=== PATIENT | female | born 1985 ===

== ENCOUNTER 2025-04-20 19:47 | Inpatient (IN) | payer BC ==
[2025-04-20] MEDS ORDERED: Sodium Chloride 0.9% 10 ML Syringe FLUSH PRN (20:02)
[2025-04-20] MEDS: Ketorolac 30 MG/ML SDV IVPUSH ONE (20:10)
[2025-04-20] MEDS: diphenhydrAMINE 50 MG/ML SDV IVPUSH ONE (20:10)
[2025-04-20] MEDS: methylPREDNISolone Sodium Succinate 40 MG/1 ML SDV IVPUSH ONE (20:10)
[2025-04-20] MEDS: Ondansetron 4 MG/2 ML SDV IVPUSH ONE ×2 (20:10→20:28)
[2025-04-20 20:20] LABS: BASOPHILS ABSOLUTE AUTO 0.0 K/mm3 (0.0-0.2); BASOPHILS PERCENT AUTO 0.2 % (0.0-1.0); EOSINOPHILS ABSOLUTE AUTO 0.4 K/mm3 (0.0-0.4); EOSINOPHILS PERCENT AUTO 3.1 % (0.0-6.0); IMMATURE GRAN ABSOLUTE AUTO 0.10 K/mm3 (0.00-0.05); IMMATURE GRAN PERCENT AUTO 0.8 % (0.0-0.4); LYMPHOCYTES ABSOLUTE AUTO 0.3 K/mm3 (1.0-4.8); LYMPHOCYTES PERCENT AUTO 2.3 % (24.0-44.0); MEAN PLATELET VOLUME 11.0 fl (9.4-12.3); MONOCYTES ABSOLUTE AUTO 1.1 K/mm3 (0.0-0.8); MONOCYTES PERCENT AUTO 8.2 % (0.0-8.0); NEUTROPHILS ABSOLUTE AUTO 11.2 K/mm3 (1.8-7.7); NEUTROPHILS PERCENT AUTO 85.4 % (41.0-71.0); NRBC ABSOLUTE 0.00 (0.00-0.02); NRBC PERCENT 0.0 % (0.0-0.2); PLATELET COUNT,PLT 181 K/mm3 (150-400); RED BLOOD CELL COUNT 4.44 M/mm3 (4.10-5.30); WHITE BLOOD CELL COUNT,WBC 13.07 K/mm3 (3.9-11.3)
[2025-04-20 20:41] LABS: A/G RATIO 1.0 (1-2); ALANINE AMINOTRANSFERASE,ALT 60.0 U/L (14-59); ASPARTATE AMNIOTRANSFERASE,AST 42.0 U/L (15-37); BILIRUBIN TOTAL 0.9 mg/dL (0.2-1.0); BLOOD UREA NITROGEN,BUN 42.0 mg/dL (7-18); CARBON DIOXIDE,CO2 26.0 mEq/L (21-32); CHLORIDE,CL 100.0 mEq/L (98-107); CREATININE 3.8 mg/dL (0.55-1.02); EST CRCL DRUG DOSING (CG) 20.98 mL/min; ESTIMATED GFR 15.0 mL/min (>60); GLUCOSE RANDOM 119.0 mg/dL (70-99); POTASSIUM,K 3.8 mEq/L (3.5-5.1); PROTEIN TOTAL,TP 6.1 g/dl (6.4-8.2); SODIUM,NA 135.0 mEq/L (136-145)
[2025-04-20] MEDS: Magnesium Sulf/Wat 4 GM/50 mL 4 GM in Premix Bag 1 BAG IV ONE (21:06)
[2025-04-20 21:14] LABS: LACTIC ACID 1.7 mmol/L (0.4-2.0)
[2025-04-20 23:35] LABS: APPEARANCE,URINE CLEAR (Clear); GLUCOSE,URINE NEGATIVE (Negative); OCCULT BLOOD,URINE NEGATIVE (Negative)
[2025-04-21 00:27] LABS: WBC CLUMPS,URINE FEW /hpf (NOT SEEN)
[2025-04-21] MEDS: Furosemide 40 MG/4 ML VIAL IVPUSH ONE (00:56)
[2025-04-21] MEDS: Lactated Ringers 1,000 ML IV SCH (00:59)
[2025-04-21 05:44] LABS: A/G RATIO 0.9 (1-2); ALANINE AMINOTRANSFERASE,ALT 60.0 U/L (14-59); ASPARTATE AMNIOTRANSFERASE,AST 37.0 U/L (15-37); BILIRUBIN TOTAL 0.6 mg/dL (0.2-1.0); BLOOD UREA NITROGEN,BUN 38.0 mg/dL (7-18); CARBON DIOXIDE,CO2 23.0 mEq/L (21-32); CHLORIDE,CL 107.0 mEq/L (98-107); CREATININE 2.3 mg/dL (0.55-1.02); EST CRCL DRUG DOSING (CG) 34.66 mL/min; ESTIMATED GFR 27.0 mL/min (>60); GLUCOSE RANDOM 210.0 mg/dL (70-99); POTASSIUM,K 4.2 mEq/L (3.5-5.1); PROTEIN TOTAL,TP 5.8 g/dl (6.4-8.2); SODIUM,NA 140.0 mEq/L (136-145)
[2025-04-21 05:55] LABS: BASOPHILS ABSOLUTE AUTO 0.0 K/mm3 (0.0-0.2); BASOPHILS PERCENT AUTO 0.1 % (0.0-1.0); EOSINOPHILS ABSOLUTE AUTO 0.0 K/mm3 (0.0-0.4); EOSINOPHILS PERCENT AUTO 0.1 % (0.0-6.0); IMMATURE GRAN ABSOLUTE AUTO 0.13 K/mm3 (0.00-0.05); IMMATURE GRAN PERCENT AUTO 1.4 % (0.0-0.4); LYMPHOCYTES ABSOLUTE AUTO 0.5 K/mm3 (1.0-4.8); LYMPHOCYTES PERCENT AUTO 4.9 % (24.0-44.0); MEAN PLATELET VOLUME 11.3 fl (9.4-12.3); MONOCYTES ABSOLUTE AUTO 0.3 K/mm3 (0.0-0.8); MONOCYTES PERCENT AUTO 2.9 % (0.0-8.0); NEUTROPHILS ABSOLUTE AUTO 8.3 K/mm3 (1.8-7.7); NEUTROPHILS PERCENT AUTO 90.6 % (41.0-71.0); NRBC ABSOLUTE 0.00 (0.00-0.02); NRBC PERCENT 0.0 % (0.0-0.2); PLATELET COUNT,PLT 159 K/mm3 (150-400); RED BLOOD CELL COUNT 4.20 M/mm3 (4.10-5.30); WHITE BLOOD CELL COUNT,WBC 9.17 K/mm3 (3.9-11.3)
[2025-04-21 08:32] LABS: PHOSPHORUS 3.2 mg/dL (2.6-4.7)
[2025-04-21] MEDS ORDERED: Ondansetron 4 MG Tab.DIS PO PRN (09:01)
[2025-04-21] MEDS ORDERED: LORazepam 2 MG/ML SDV IVPUSH PRN (09:08)
[2025-04-21] MEDS ORDERED: Mometasone Furoate HFA 100mcg/Puff 13 GM Inhaler INH PRN (09:16)
[2025-04-21] MEDS: Heparin Sodium 5,000 Units/ML Vial SUBCUT SCH (09:44)
[2025-04-21] MEDS ORDERED: Sennosides/Docusate Sodium 50-8.6 MG Tab PO PRN (21:00)
[2025-04-22 04:56] LABS: BASOPHILS ABSOLUTE AUTO 0.0 K/mm3 (0.0-0.2); BASOPHILS PERCENT AUTO 0.1 % (0.0-1.0); EOSINOPHILS ABSOLUTE AUTO 0.2 K/mm3 (0.0-0.4); EOSINOPHILS PERCENT AUTO 3.2 % (0.0-6.0); IMMATURE GRAN ABSOLUTE AUTO 0.04 K/mm3 (0.00-0.05); IMMATURE GRAN PERCENT AUTO 0.6 % (0.0-0.4); LYMPHOCYTES ABSOLUTE AUTO 1.6 K/mm3 (1.0-4.8); LYMPHOCYTES PERCENT AUTO 22.9 % (24.0-44.0); MEAN PLATELET VOLUME 11.3 fl (9.4-12.3); MONOCYTES ABSOLUTE AUTO 0.5 K/mm3 (0.0-0.8); MONOCYTES PERCENT AUTO 6.9 % (0.0-8.0); NEUTROPHILS ABSOLUTE AUTO 4.6 K/mm3 (1.8-7.7); NEUTROPHILS PERCENT AUTO 66.3 % (41.0-71.0); NRBC ABSOLUTE 0.00 (0.00-0.02); NRBC PERCENT 0.0 % (0.0-0.2); PLATELET COUNT,PLT 131 K/mm3 (150-400); RED BLOOD CELL COUNT 3.73 M/mm3 (4.10-5.30); WHITE BLOOD CELL COUNT,WBC 6.98 K/mm3 (3.9-11.3)
[2025-04-22 05:17] LABS: A/G RATIO 1.0 (1-2); ALANINE AMINOTRANSFERASE,ALT 50.0 U/L (14-59); ASPARTATE AMNIOTRANSFERASE,AST 29.0 U/L (15-37); BILIRUBIN TOTAL 0.3 mg/dL (0.2-1.0); BLOOD UREA NITROGEN,BUN 19.0 mg/dL (7-18); CARBON DIOXIDE,CO2 28.0 mEq/L (21-32); CHLORIDE,CL 113.0 mEq/L (98-107); CREATININE 1.0 mg/dL (0.55-1.02); EST CRCL DRUG DOSING (CG) 79.72 mL/min; ESTIMATED GFR 74.0 mL/min (>60); GLUCOSE RANDOM 114.0 mg/dL (70-99); PHOSPHORUS 2.6 mg/dL (2.6-4.7); POTASSIUM,K 3.8 mEq/L (3.5-5.1); PROTEIN TOTAL,TP 5.1 g/dl (6.4-8.2); SODIUM,NA 144.0 mEq/L (136-145)
[2025-04-22] MEDS: Ketorolac 15 MG/ML SDV IVPUSH ONE (06:16)
[2025-04-22] MEDS: DESVENLAFAXINE SUCCINATE 50 MG PO PRN (09:58)
[2025-04-22] MEDS: Potassium Phosphates 30 MMOLE in Sodium Chloride 0.9% 500 ML IV SCH (10:03)
[2025-04-22 12:52] LABS: BORDETELLA PARAPERT IS1001 Not Detected (Not Detected)
[2025-04-22 16:16] VITALS: BP 137/90; PULSE 66
== END 2025-04-22 16:05 | disposition home or self-care (01) | DRG 82 ==
LOC: JD.ED 19:47 → JD.MS 04-21 06:11
PROVIDERS: ADMIT Student in an Organized Health Care Education/Training Program; ATTEND Student in an Organized Health Care Education/Training Program
DX: H53.8 Other visual disturbances (principal); I95.2 Hypotension due to drugs; M79.10 Myalgia, unspecified site; R11.2 Nausea with vomiting, unspecified; N17.9 Acute kidney failure, unspecified; N30.00 Acute cystitis without hematuria; G43.909 Migraine, unspecified, not intractable, without status migrainosus; E78.00 Pure hypercholesterolemia, unspecified; I10 Essential (primary) hypertension; K21.9 Gastro-esophageal reflux disease without esophagitis; F41.9 Anxiety disorder, unspecified; F32.A Depression, unspecified; E66.9 Obesity, unspecified; T36.8X5A Adverse effect of other systemic antibiotics, initial encounter; E11.65 Type 2 diabetes mellitus with hyperglycemia; Z88.8 Allergy status to other drugs, medicaments and biological substances; Z90.89 Acquired absence of other organs; Z88.2 Allergy status to sulfonamides; Z79.899 Other long term (current) drug therapy; Z68.41 Body mass index [BMI] 40.0-44.9, adult; Z86.16 Personal history of COVID-19
CPT/HCPCS: 36415; 71046; 71046-26; 74176; 74176-26; 80053; 81001; 83036; 83605; 83690; 83735; 84100; 84703; 85025; 86140; 87040; 87086; 87426-QW; 87486; 87581; 87633; 96361; 96365; 96366; 96368; 96375; 99285; 99285-25; A9270-GY; J1200; J1644; J1885; J2405; J2543; J2919; J3475; J3490; J7030; J7040; J7120